=== PATIENT | female | born 1955 | race Caucasian/White ===

== ENCOUNTER 2018-01-03 08:12 | Day surgery (SDC) | payer MEDICARE ==
[2018-01-03] MEDS ORDERED: fentaNYL 100 MCG/2 ML SDV ONE (08:41)
[2018-01-03] MEDS ORDERED: Midazolam 1 MG/ML 2 ML SDV ONE (08:41)
[2018-01-03] MEDS ORDERED: Propofol 200 MG/20 ML SDV ONE (08:41)
[2018-01-03] MEDS ORDERED: Lactated Ringers 1,000 ML IV SCH (09:00)
[2018-01-03] MEDS ORDERED: Lidocaine 1% 2 ML ONE (09:49)
--- NOTE | 2018-01-03 12:15 | OR ---
DATE OF PROCEDURE: 01/03/2018 SURGEON: Mamadou Lorenzo MD PREOP DIAGNOSES: History of Tripp's esophagus, hiatal hernia, history of peptic ulcer disease, and history of colon polyps. POSTOP DIAGNOSES: Tripp's esophagus, hiatal hernia, history of peptic ulcer disease, small gastric polyps, consistent with fundic gland polyps, and right colon polyp. PROCEDURE PERFORMED: Esophagogastroduodenoscopy with removal of several gastric polyps, biopsy of gastroesophageal junction, colonoscopy to the cecum, with biopsy resection of small right colon polyp ANESTHESIA: IV anesthesia with monitored anesthesia care. INDICATION: This 62-year-old white female is referred upper and lower endoscopies. Indication for upper endoscopy is history of Tripp's esophagus, hiatal hernia and peptic ulcer disease. Indication for colonoscopy is a history of colon polyps. She says the last colonoscopic exam was done at least five years ago, but she does not think 10 years ago. I counseled her for upper and lower endoscopy with possible biopsy and/or polypectomy including risks and alternatives, and she gave her informed consent to proceed. PROCEDURE DETAILS: The patient was placed in the left lateral decubitus position. IV anesthesia was administered by the Anesthesia Service. Time-out was held. The flexible video Olympus upper endoscope was passed through her mouth down her esophagus, and into her stomach. The scope was easily passed through the pylorus into the duodenum reaching its third portion. The scope was then slowly withdrawn examining the mucosa throughout. The duodenal mucosa appeared unremarkable. The scope was brought up through the pylorus. The antrum appeared unremarkable. The scope was retroflexed. The most proximal stomach appeared unremarkable. The scope was straightened. We did see three gastric polyps. These had the appearance of fundic gland polyps. They were removed with the biopsy forceps. The scope was brought up through a hiatal hernia about 3 cm of length. The GE junction was abnormal with the Z-line not being straight. We obtained multiple totalling at least 6 biopsies of the gastroesophageal junction. The scope was then brought proximally up through the remainder of the esophagus, which otherwise appeared unremarkable and it was removed. Next, a rectal exam was performed, which was unremarkable. The flexible video Olympus colonoscope was introduced through her anus, up her rectum, out her colon all the way to the cecum. En-route in the right colon, we saw a small polyp, which was removed with several bites of biopsy forceps. Once the cecum was reached, the scope was slowly withdrawn examining the mucosa throughout. No additional mucosal abnormalities were noted. The scope was retroflexed in the rectum with the distal rectum appearing unremarkable. The scope was straightened and removed. She tolerated the procedure well. Mamadou Lorenzo MD /[id number]
== END 2018-01-03 11:50 | disposition home or self-care (01) ==
LOC: JP.SDS 08:12
PROVIDERS: ATTEND Surgery
DX: Z12.11 Encounter for screening for malignant neoplasm of colon (principal); D12.2 Benign neoplasm of ascending colon; K31.7 Polyp of stomach and duodenum; Z86.010 Personal history of colon polyps; K44.9 Diaphragmatic hernia without obstruction or gangrene; Z87.11 Personal history of peptic ulcer disease; Z87.19 Personal history of other diseases of the digestive system; Z88.1 Allergy status to other antibiotic agents; Z88.0 Allergy status to penicillin
CPT/HCPCS: 88305; J2001; J2250; J2704; J3010; J7120